=== PATIENT | female | born 1950 | race American Indian/Alaskan Native ===

== ENCOUNTER 2019-12-29 16:11 | Emergency (ER) | payer MEDICARE ==
[2019-12-29 16:23] VITALS: RESP 18; TEMP 98.6
[2019-12-29 16:45] LABS: Glucose,Whole Blood 117 mg/dL (75-99)
[2019-12-29] MEDS ORDERED: ASPIRIN 81 MG PO STA (16:49)
--- NOTE | 2019-12-29 16:53 | ED ---
General Adult HPI - General Chief complaint: Chest Pain Stated complaint: Swollen feet, chest pressure, DOMINIC, light headed Time Seen by Provider: 12/29/19 16:25 Source: patient Mode of arrival: wheelchair Limitations: no limitations - History of Present Illness Initial comments: Dictation was produced using [employer] dictation software. please excuse any grammatical, word or spelling errors. This patient was cared for during a federal and state declared state of emergency secondary to Covid 19 Chief Complaint: 69-year-old female presents with shortness of breath, bilateral lower extremity edema and left calf pain. History of Present Illness: No old female she currently resides in [place]. They are in town because they're visiting family. There was an unexpected in the family. They were here for the . Patient states that over the last 2-3 days she has been suffering from upper extremity edema. She also complains of some mild calf pain. Patient also feels like she slightly short of breath. Shows complains of some mild chest pressure to the left anterior chest. Patient states that her swelling is worse in the morning especially when she wakes up whatever it goes away. Patient states she's had a blood clot/DVT in the past. Denies any cough. Her family member at bedside has a lot of cardiac comorbidities which initially presented similarly to patient's symptoms. The ROS documented in this emergency department record has been reviewed and confirmed by me. Those systems with pertinent positive or negative responses have been documented in the HPI. All other systems are other negative and/or noncontributory. PHYSICAL EXAM: General Impression: Alert and oriented x3, not in acute distress HEENT: Normocephalic atraumatic, extra-ocular movements intact, pupils equal and reactive to light bilaterally, mucous membranes moist. Cardiovascular: Heart regular rate and rhythm Chest: Able to complete full sentences, no retractions, no tachypnea Abdomen: abdomen soft, non-tender, non-distended, no organomegaly Musculoskeletal: Pulses present and equal in all extremities, 1+ pitting edema to bilateral lower extremities Motor: no focal deficits noted Neurological: CN II-XII grossly intact, no focal motor or sensory deficits noted Skin: Intact with no visualized rashes Psych: Normal affect and mood ED course: 69-year-old female presents with chest pain, lower extremity swelling, dizziness vital signs upon arrival are within acceptable limits. Laboratory evaluation obtained. CBC unremarkable. D-dimer 0.26. Metabolic panel is within acceptable limits. Prematurity peptide is 75, troponin is negative. Chest x-ray is not acute. Ultrasound Doppler studies of the venous system bilateral extremities negative for DVT. Patient given aspirin. patient reevaluated bedside finally stable medical condition. She denies any chest pain at this time. Patient told to follow-up with her primary care physician when she gets back to [place]. The plan to try back today. EKG interpretation: Ventricular rate 81, normal sinus rhythm,. Interval 160, QRS 90, QTc 439. No CA prolongation, no QTC prolongation, no ST or T-wave changes noted. No old EKG for comparison. Overall, this EKG is unremarkable - Related Data Allergies Allergy/AdvReac Type Severity Reaction Status Date / Time latex Allergy Rash/Hives Verified 12/29/19 16:16 Review of Systems ROS Statement: Those systems with pertinent positive or pertinent negative responses have been documented in the HPI. ROS Other: All systems not noted in ROS Statement are negative. Past Medical History Past Medical History: Diabetes Mellitus, Hypertension History of Any Multi-Drug Resistant Organisms: None Reported Past Surgical History: Back Surgery, Cholecystectomy Additional Past Surgical History / Comment(s): cervial/lumbar fusion, thrombectomy RLE Past Psychological History: No Psychological Hx Reported Smoking Status: Never smoker Past Alcohol Use History: None Reported Past Drug Use History: None Reported General Exam Limitations: no limitations Course Vital Signs 12/29/19 12/29/19 12/29/19 16:17 17:00 17:30 Temperature 98.6 F Pulse Rate 83 78 70 Respiratory 18 21 18 Rate Blood Pressure 132/73 139/70 101/88 O2 Sat by Pulse 95 98 98 Oximetry 12/29/19 12/29/19 18:00 18:30 Temperature Pulse Rate 67 70 Respiratory 21 18 Rate Blood Pressure 113/76 130/78 O2 Sat by Pulse 97 97 Oximetry Medical Decision Making - Lab Data Result diagrams: 12/29/19 16:48 12/29/19 16:48 Lab Results 12/29/19 12/29/19 12/29/19 Range/Units 16:43 16:48 16:48 WBC 6.2 (3.8-10.6) k/uL RBC 4.82 (3.80-5.40) m/uL Hgb 14.7 (11.4-16.0) gm/dL Hct 41.2 (34.0-46.0) % MCV 85.3 (80.0-100.0) fL MCH 30.4 (25.0-35.0) pg MCHC 35.7 (31.0-37.0) g/dL RDW 13.1 (11.5-15.5) % Plt Count 188 (150-450) k/uL Neutrophils % 58 % Lymphocytes % 32 % Monocytes % 5 % Eosinophils % 2 % Basophils % 1 % Neutrophils # 3.6 (1.3-7.7) k/uL Lymphocytes # 2.0 (1.0-4.8) k/uL Monocytes # 0.3 (0-1.0) k/uL Eosinophils # 0.1 (0-0.7) k/uL Basophils # 0.1 (0-0.2) k/uL D-Dimer (<0.60) mg/L FEU Sodium 138 (137-145) mmol/L Potassium 4.1 (3.5-5.1) mmol/L Chloride 108 H (98-107) mmol/L Carbon Dioxide 21 L (22-30) mmol/L Anion Gap 9 mmol/L BUN 17 (7-17) mg/dL Creatinine 0.66 (0.52-1.04) mg/dL Est GFR (CKD-EPI)AfAm >90 (>60 ml/min/1.73 sqM) Est GFR (CKD-EPI)NonAf >90 (>60 ml/min/1.73 sqM) Glucose 106 H (74-99) mg/dL POC Glucose (mg/dL) 117 H (75-99) mg/dL POC Glu [employer] Scheduler ID Nataly Meléndez Calcium 9.8 (8.4-10.2) mg/dL Magnesium 1.9 (1.6-2.3) mg/dL Troponin I (0.000-0.034) ng/mL NT-Pro-B Natriuret Pep pg/mL 12/29/19 12/29/19 12/29/19 Range/Units 16:48 16:48 16:55 WBC (3.8-10.6) k/uL RBC (3.80-5.40) m/uL Hgb (11.4-16.0) gm/dL Hct (34.0-46.0) % MCV (80.0-100.0) fL MCH (25.0-35.0) pg MCHC (31.0-37.0) g/dL RDW (11.5-15.5) % Plt Count (150-450) k/uL Neutrophils % % Lymphocytes % % Monocytes % % Eosinophils % % Basophils % % Neutrophils # (1.3-7.7) k/uL Lymphocytes # (1.0-4.8) k/uL Monocytes # (0-1.0) k/uL Eosinophils # (0-0.7) k/uL Basophils # (0-0.2) k/uL D-Dimer 0.26 (<0.60) mg/L FEU Sodium (137-145) mmol/L Potassium (3.5-5.1) mmol/L Chloride (98-107) mmol/L Carbon Dioxide (22-30) mmol/L Anion Gap mmol/L BUN (7-17) mg/dL Creatinine (0.52-1.04) mg/dL Est GFR (CKD-EPI)AfAm (>60 ml/min/1.73 sqM) Est GFR (CKD-EPI)NonAf (>60 ml/min/1.73 sqM) Glucose (74-99) mg/dL POC Glucose (mg/dL) (75-99) mg/dL POC Glu [employer] Scheduler ID Calcium (8.4-10.2) mg/dL Magnesium (1.6-2.3) mg/dL Troponin I <0.012 (0.000-0.034) ng/mL NT-Pro-B Natriuret Pep 75 pg/mL Disposition Clinical Impression: Leg edema Disposition: HOME SELF-CARE Condition: Good Instructions (If sedation given, give patient instructions): Leg Edema (ED) Is patient prescribed a controlled substance at d/c from ED?: No Referrals: None,Stated [Primary Care Provider] - 1-2 days Time of Disposition: 18:40
[2019-12-29 17:05] LABS: Basophils # (A) 0.1 k/uL (0-0.2); Basophils % (A) 1 %; Eosinophils # (A) 0.1 k/uL (0-0.7); Eosinophils % (A) 2 %; HCT 41.2 % (34.0-46.0); HGB 14.7 gm/dL (11.4-16.0); Lymphocytes % (A) 32 %; MCH 30.4 pg (25.0-35.0); MCHC 35.7 g/dL (31.0-37.0); MCV 85.3 fL (80.0-100.0); Monocytes # (A) 0.3 k/uL (0-1.0); Monocytes % (A) 5 %; Neutrophils # (A) 3.6 k/uL (1.3-7.7); Neutrophils % (A) 58 %; Platelet Count 188 k/uL (150-450); RBC 4.82 m/uL (3.80-5.40); RDW 13.1 % (11.5-15.5); WBC 6.2 k/uL (3.8-10.6)
[2019-12-29 17:16] LABS: African American GFR (CKD) >90 (>60 ml/min/1.73 sqM); Anion Gap 9 mmol/L; Blood Urea Nitrogen 17 mg/dL (7-17); Calcium 9.8 mg/dL (8.4-10.2); Carbon Dioxide 21 mmol/L (22-30); Chloride 108 mmol/L (98-107); Glucose 106 mg/dL (74-99); Magnesium 1.9 mg/dL (1.6-2.3); Non-African American GFR(CKD) >90 (>60 ml/min/1.73 sqM); Potassium 4.1 mmol/L (3.5-5.1); Sodium 138 mmol/L (137-145)
--- NOTE | 2019-12-29 17:21 | XR ---
EXAMINATION TYPE: XR chest 2V DATE OF EXAM: 12/29/2019 COMPARISON: NONE HISTORY: Short of breath TECHNIQUE: 2 views FINDINGS: Heart is normal. Lungs are clear of infiltrate. There is no heart failure. There are no hil ar masses. There is cervical spine fusion surgery. There are chest leads. IMPRESSION: No active cardiopulmonary disease. Normal heart.
--- NOTE | 2019-12-29 18:31 | US ---
EXAMINATION TYPE: US venous doppler duplex LE BI DATE OF EXAM: 12/29/2019 4:49 PM COMPARISON: NONE CLINICAL HISTORY: rule out DVT. SIDE PERFORMED: Bilateral TECHNIQUE: The lower extremity deep venous system is examined utilizing real time linear array sonog maeve with graded compression, doppler sonography and color-flow sonography. VESSELS IMAGED: External Iliac Vein (EIV) Common Femoral Vein Deep Femoral Vein Greater Saphenous Vein * Femoral Vein Popliteal Vein Small Saphenous Vein * Proximal Calf Veins (* superficial vessels) Right Leg: Negative for DVT Left Leg: Negative for DVT IMPRESSION: No evidence of deep vein thrombosis in both legs.
[2019-12-29 18:32] VITALS: BP 130/78; PULSE 70
== END 2019-12-29 18:57 | disposition home or self-care (01) ==
LOC: EC 16:11
DX: R60.0 Localized edema (principal); M79.89 Other specified soft tissue disorders; R07.89 Other chest pain; R06.02 Shortness of breath; R42 Dizziness and giddiness; Z91.040 Latex allergy status
CPT/HCPCS: 36415; 71046; 80048; 83735; 83880; 84484; 85025; 85379; 93005; 93970; 99285